=== PATIENT | female | born 1985 | race Caucasian/White ===

== ENCOUNTER 2017-05-04 22:07 | Emergency (ER) | payer OTHER ==
[2017-05-04 22:33] LABS: BILIRUBIN,URINE NEGATIVE (NEGATIVE); GLUCOSE, URINE (UA) NEGATIVE (NEGATIVE); KETONES,URINE (UA) NEGATIVE (NEGATIVE); LEUKOCYTE ESTERASE, URINE NEGATIVE (NEGATIVE); NITRITE,URINE NEGATIVE (NEGATIVE); OCCULT BLOOD,URINE SMALL (NEGATIVE); PROTEIN,URINE NEGATIVE (NEGATIVE); UROBILINOGEN,URINE 0.2 (NORMAL) E.U./dL (NORMAL)
[2017-05-04 22:35] LABS: CLARITY,URINE HAZY (CLEAR); HCG UR QUAL POSITIVE
--- NOTE | 2017-05-04 22:40 | ED Physician Documentation ---
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 One living child is the result of twins wherein one twin in utero ) Similar symptoms before: Other (she has had miscarriages in the past, although these involved vaginal bleeding +/- cramping (does not have vaginal bleeding tonight)) Recently seen: Not recently seen Review of Systems Constitutional: denies: Fever GI: denies: Abdominal Pain (pelvic pain, right-sided, but no abdominal pain per se), Nausea, Vomiting : denies: Dysuria, Frequency Musculoskeletal: denies: Back pain PD PAST MEDICAL HISTORY - Past Medical History Past Medical History: Yes GI: Other (IBD) : Kidney stones - Present Medications Home Medications: Ambulatory Orders Medication Instructions Recorded Confirmed #103/Iron Fumarate/FA 1 tab PO DAILY 05/04/17 05/04/17 [ Tablet] - Allergies Allergies/Adverse Reactions: Allergies Allergy/AdvReac Type Severity Reaction Status Date / Time levofloxacin [From Levaquin] Allergy Anaphylaxis Verified 05/04/17 22:15 Sulfa (Sulfonamide AdvReac Hives Verified 05/04/17 22:15 Antibiotics) - Living Situation Living Situation: reports: With spouse/s.o. Living Arrangement: reports: At home - Social History Does the pt smoke?: No PD ED PE NORMAL - Vitals Vital signs reviewed: Yes - General General: Alert and oriented X 3, No acute distress, Well developed/nourished - Cardiac Cardiac: RRR, No murmur - Respiratory Respiratory: No respiratory distress, Clear bilaterally - Abdomen Abdomen: Normal bowel sounds, Soft, Non tender, Non distended - Back Back: No CVA TTP - Derm Derm: Normal color, Warm and dry PD ED PE EXPANDED - Free text exam Free text exam: mild right anterior hemipelvic tenderness without mass, guarding, rebound Results - Vitals Vitals: Oxygen O2 Source Room air - Labs Labs: Laboratory Tests 05/04/17 05/04/17 22:22 23:40 HCG, Quant [id number] Urine Color YELLOW Urine Clarity HAZY Urine pH 6.0 Ur Specific [place] 1.025 Urine Protein NEGATIVE Urine Glucose (UA) NEGATIVE Urine Ketones NEGATIVE Urine Occult Blood SMALL H Urine Nitrite NEGATIVE Urine Bilirubin NEGATIVE Urine Urobilinogen 0.2 (NORMAL) Ur Leukocyte Esterase NEGATIVE Urine RBC 6-10 H Urine WBC 0-3 Ur Squamous Epith Cells FEW Squamous Urine Bacteria Few Ur Microscopic Review INDICATED Urine Culture Comments NOT INDICATED Urine HCG, Qual POSITIVE - Rads (name of study) pelvic US Radiology: Prelim report reviewed, See rad report PD MEDICAL DECISION MAKING - ED course Complexity details: reviewed results, re-evaluated patient, considered differential, d/w patient ED course: Reassuring US results, and HCG level is significantly higher than previous (she says it was 6300 on 04/29, performed at another lab). Pain was controlled with one dose of tylenol in ED. Initial exam revealed mild right anterior hemipelvic tenderness which was not present on reexam. 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
[2017-05-04 23:08] LABS: BACTERIA,URINE Few /HPF (None Seen); SQUAMOUS EPITHELIAL CELL,UR FEW Squamous (<= Few)
[2017-05-05 00:41] VITALS: BP 105/64
--- NOTE | 2017-05-05 00:53 | Ultrasound Report ---
EXAM: FIRST TRIMESTER OBSTETRIC ULTRASOUND (Less than 11 weeks) EXAM DATE: 05/05/2017 12:33 AM. CLINICAL HISTORY: Right pelvic pain. 1st trimester . LMP: 03/22/2017. COMPARISONS: None. TECHNIQUE: Transabdominal and transvaginal ultrasound examination with static image documentation. CLINICAL DATES: EGA 6 weeks 1 day with KEVIN 12/27/2017 based on LMP. ASSESSMENT: Gestational Sac: Single intrauterine. Mean gestational sac diameter: 15 mm = 6 weeks 2 days. Embryo: CRL (crown-rump length) 3.3 mm = 6 weeks 1 day. Cardiac activity: 117 beats per minute. Yolk sac: 3 mm. Amniotic fluid: Not accurately assessed at this gestational age. Early placenta: Not visible at this gestational age. Other: 3 mm perigestational fluid collection noted. MATERNAL STRUCTURES: Uterus: Anteverted. Unremarkable. Cervix: Closed. Right Ovary/Adnexa: Unremarkable. The ovary measures 4.3 x 2.4 x 3.8 cm, volume 20.3 cc. 2.0 x 2.2 x 2.3 corpus luteum noted. Left Ovary/Adnexa: Unremarkable. The ovary measures 3.3 x 1.6 x 1.8 cm, volume 5.1 cc. Free Fluid: None. Other: None. IMPRESSION: 1. Single viable intrauterine at EGA 6 weeks 1 day with KEVIN 12/27/2017 based on crown-rump length, which is concordant with clinical dates. 2. Small 3 mm perigestational fluid collection noted. [facility] Referring Provider Line: [phone] SITE ID: [id number]
--- NOTE | 2017-05-05 00:55 | Ultrasound Preliminary Report ---
Exam: US OB TRANSVAGINAL See prior report [facility] SITE ID: [id number]
[2017-05-05] MEDS ORDERED: ACETAMINOPHEN 325 MG TABLET PO STA (00:57)
--- NOTE | 2017-05-05 15:56 | Ultrasound Report ---
EXAM: PELVIC ULTRASOUND Combined report. [facility] Referring Provider Line: [phone] SITE ID: [id number]
== END 2017-05-05 03:55 | disposition home or self-care (01) ==
LOC: ED 22:07
DX: O26.891 Other specified pregnancy related conditions, first trimester (principal); R10.2 Pelvic and perineal pain; Z3A.01 Less than 8 weeks gestation of pregnancy
CPT/HCPCS: 76801; 76817; 81001; 81025; 84702; 99283; A9270; 81003; 87086

== ENCOUNTER 2018-10-18 13:25 | Emergency (ER) | payer OTHER ==
[2018-10-18 13:33] VITALS: BP 125/75
--- NOTE | 2018-10-18 14:54 | ED Physician Documentation ---
History of Present Illness - Stated complaint Stated Complaint: LAB TEST/PREG 5 WEEKS - Chief complaint Chief Complaint: General - History obtained from History obtained from: Patient - History of Present Illness Timing: Other (This is a 33-year-old G6 who had an LMP of August 15. She found that she was 8 days ago and she is had some left-sided pelvic cramping for the last 5 days or so that is not worsening. There is no bleeding. Her LMP may not be sales training representative of conception because she is breast-feeding. She was seen in the clinic couple of days ago and had a beta-hCG done, and was r ecommended to have a repeat lab today to assess the as she had a nondiagnostic sono then.) Review of Systems Constitutional: reports: Reviewed and negative Cardiac: reports: Reviewed and negative Respiratory: reports: Reviewed and negative PD PAST MEDICAL HISTORY - Past Medical History GI: Other (IBD) : Kidney stones - Past Surgical History Past Surgical History: Yes HEENT: Rhinoplasty - Present Medications Home Medications: Ambulatory Orders Medication Instructions Recorded Confirmed #103/Iron Fumarate/FA 1 tab PO DAILY 05/04/17 05/04/17 [ Tablet] - Allergies Allergies/Adverse Reactions: Allergies Allergy/AdvReac Type Severity Reaction Status Date / Time levofloxacin [From Levaquin] Allergy Anaphylaxis Verified 10/18/18 13:33 Sulfa (Sulfonamide AdvReac Hives Verified 10/18/18 13:33 Antibiotics) - Social History Does the pt smoke?: No Smoking Status: Never smoker Does the pt drink ETOH?: No Does the pt have substance abuse?: No - POLST Patient has POLST: No PD ED PE NORMAL - Vitals Vital signs reviewed: Yes - General General: Alert and oriented X 3, No acute distress - Abdomen Abdomen: Normal bowel sounds, Soft, Non tender, Non distended - Back Back: No CVA TTP, No spinal TTP - Extremities Extremities: No edema, No calf tenderness / cord - Neuro Neuro: Alert and oriented X 3, Normal speech Results - Vitals Vitals: Vital Signs - 24 hr 10/18/18 13:29 Temperature 36.8 C Heart Rate 68 Respiratory 18 Rate Blood Pressure 125/75 O2 Saturation 98 Oxygen O2 Source Room air - Labs Labs: Laboratory Tests 10/18/18 14:58 HCG, Quant [id number] PD MEDICAL DECISION MAKING - ED course ED course: Her beta-hCG is more than double the last 2 days which is very reassuring for the , continue watchful waiting and close follow-up was advised. Departure - Departure Disposition: 01 Home, Self Care Clinical Impression: Elevated serum hCG Condition: Good Record reviewed to determine appropriate education?: Yes Instructions: ED Miscarriage Poss, ED Abdominal Pain Rule Out Ectopic Comments: You need to follow-up in about a week for repeat ultrasound, return for new or worsening symptoms or go to the closest ER if you get significant pain, bleeding.
== END 2018-10-18 16:07 | disposition home or self-care (01) ==
LOC: ED 13:25
DX: R10.2 Pelvic and perineal pain (principal); Z32.01 Encounter for pregnancy test, result positive
CPT/HCPCS: 36415; 84702; 99282; 99283